=== PATIENT | female | born 1995 | race Caucasian/White ===

== ENCOUNTER 2016-05-03 18:30 | Emergency (ER) | payer SELFPAY ==
[2016-05-03 18:48] VITALS: BP 109/66; PULSE 62; RESP 16; TEMP 98.2; O2SAT 99
--- NOTE | 2016-05-03 19:25 | EDPHY ---
H & P Smoking Status: Current every day smoker Time Seen by Provider: 05/03/16 18:47 HPI/ROS: CHIEF COMPLAINT: Right hand injury HISTORY OF PRESENT ILLNESS: 20-year-old female presents to the emergency department with injury to the right hand. The patient was playing rugby and her hand was crushed on , 6 days ago. Patient continued to play with her hand taped up in splinted and is now concerned about the swelling and bruising that she has specially to the palmar right hand. She is right-hand dominant. She denies any other injury or trauma. ROS: Denies numbness or tingling in her fingers, pain in her right wrist or elbow. (Neda Powell) Past Medical/Surgical History: Negative (Neda Powell) Social History: [employer] student (Neda Powell) Physical Exam: On examination the right hand is swollen specially over the 2nd and 3rd metacarpals. She has ecchymosis noted diffusely to the palm of her right hand as well as to the base of the 2nd, 3rd, and 4th fingers. No rotational deformities noted. She has pain with range of motion. She has pain with palpation especially over the base of the 2nd metacarpal. Right wrist is nontender. Full range of motion of her right wrist and elbow. Normal sensation to light touch with normal 2 point discrimination. Strong radial pulse at the right wrist. (Neda Powell) Constitutional: Initial Vital Signs Temperature (C) 36.8 C 05/03/16 18:43 Heart Rate 62 05/03/16 18:43 Respiratory Rate 16 05/03/16 18:43 Blood Pressure 109/66 05/03/16 18:43 O2 Sat (%) 99 05/03/16 18:43 O2 Delivery Mode Room Air Allergies/Adverse Reactions: No Known Allergies Allergy (Unverified 05/03/16 18:49) Home Medications: Medication Instructions Recorded NK [No Known Home Meds] 05/03/16 MDM/Departure - MDM Diagnostics: X-rays of the right hand reveal no fractures. This is reviewed by myself the PAC system as well as by the radiologist. (Neda Powell) Procedures: Patient was placed in a volar Ortho Glass splint and examined post application in good placement with normal MANNEQUIN [employer]. (Neda Powell) ED Course/Re-evaluation: 20-year-old female presents with right hand injury. X-rays reveal no fractures. She was placed in volar splint and given orthopedic referral. (Neda Powell ) - Depart Disposition: Home, Routine, Self-Care Clinical Impression: Contusion of right hand Qualifiers: Encounter type: initial encounter Qualified Code(s): S60.221A - Contusion of right hand, initial encounter Condition: Good Instructions: Contusion in Adults (ED) Additional Instructions: Splint for comfort and support. Ibuprofen 600 mg every 8 hours as needed for pain. Follow up with orthopedic hand surgeon 1 week to recheck. Referrals: Miguel Fithc MD [Medical Doctor] - 5-7 days, call for appt. (Orthopedic surgeon on-call)
== END 2016-05-03 20:15 | disposition home or self-care (01) ==
DX: S60.221A Contusion of right hand, initial encounter (principal); F17.200 Nicotine dependence, unspecified, uncomplicated; W23.0XXA Caught, crushed, jammed, or pinched between moving objects, initial encounter; Y92.328 Other athletic field as the place of occurrence of the external cause; Y99.8 Other external cause status; Y93.63 Activity, rugby

== ENCOUNTER 2017-12-09 04:01 | Emergency (ER) | payer MEDICAID ==
[2017-12-09] MEDS ORDERED: diphenhydrAMINE 50 MG CAP PO ONE (04:10)
[2017-12-09] MEDS ORDERED: FAMOTIDINE 20 MG TAB ONE (04:10)
--- NOTE | 2017-12-09 04:11 | EDPHY ---
H & P Stated Complaint: WOKE WITH HIVES Time Seen by Provider: 12/09/17 04:11 HPI/ROS: HPI CHIEF COMPLAINT: Hives. HISTORY OF PRESENT ILLNESS: Otherwise healthy 22-year-old female, no significant medical history does not take any daily medications presents emergency room with hives. She denies any trouble breathing or trouble swallowing. States this woke from sleep she has been itching. She is unsure what caused this. She presents emergency room hemodynamically stable no acute distress. She has minimal hives on her arms bilaterally, and back. No trouble breathing no trouble swallowing. No vomiting. Past Medical History: Denies significant medical history Past Surgical History: Denies significant surgical history Social History: Had alcohol but no illicit drugs or tobacco. Family History: Noncontributory ROS REVIEW OF SYSTEMS: 10 Systems were reviewed and negative with the exception of the elements mentioned in the history of present illness. Exam Constitutional triage nursing summary reviewed, vital signs reviewed, awake/ alert. Eyes normal conjunctivae and sclera, EOMI, PERRLA. HENT normal inspection, atraumatic, moist mucus membranes, no epistaxis, neck supple/ no meningismus, no raccoon eyes. Respiratory no wheezing, no stridor. clear to auscultation bilaterally, normal breath sounds, no respiratory distress, no wheezing. Cardiovascular rate normal, regular rhythm, no murmur, no edema, distal pulses normal. Gastrointestinal soft, non-tender, no rebound, no guarding, normal bowel sounds, no distension, no pulsatile mass. Genitourinary no CVA tenderness. Musculoskeletal no midline vertebral tenderness, full range of motion, no calf swelling, no tenderness of extremities, no meningismus, good pulses, neurovascularly intact. Skin hives present. Minimal bilateral arms, back. Neurologic awake, alert and oriented x 3, AAOx3, moves all 4 extremities equally, motor intact, sensory intact, CN II-XII intact, normal cerebellar, normal vision, normal speech. Psychiatric normal mood/affect. Heme/Lymph/Immune no lymphadenopathy. Differential Diagnosis: Includes but is not limited to in a particular order allergic reaction, hives, anaphylaxis. Medical Decision Making: Plan for this patient she appears well nontoxic no acute distress. Oral meds prednisone, Benadryl, Pepcid. Watch closely further progression of allergic reaction. Re-evaluation: 055: Patient resting comfortably no acute distress. Patient is feeling much better. She would like to go home. Her urticaria resolved with oral meds. I have discussed return precautions with her. Return emergency room if worsening symptoms questions concerns, trouble breathing, trouble swelling, worsening rash. She understands. Prescription for prednisone, Pepcid, Benadryl for the next 3 days. Recommend following up with dandy tender. Source: Patient - Personal History LMP (Females 10-55): 22-28 Days Ago Current Tetanus/Diphtheria Vaccine: Yes Current Tetanus Diphtheria and Acellular Pertussis (TDAP): Yes - Medical/Surgical History Hx Asthma: No Hx Chronic Respiratory Disease: No Hx Diabetes: No Hx Cardiac Disease: No Hx Renal Disease: No Hx Cirrhosis: No Hx Alcoholism: No Hx HIV/AIDS: No Hx Splenectomy or Spleen Trauma: No Other PMH: MYOCARDITIS - Social History Smoking Status: Former smoker Constitutional: Initial Vital Signs Temperature (C) 36.6 C 12/09/17 04:04 Heart Rate 85 12/09/17 04:04 Respiratory Rate 18 12/09/17 04:04 Blood Pressure 124/74 H 12/09/17 04:04 O2 Sat (%) 98 12/09/17 04:04 O2 Delivery Mode Room Air Allergies/Adverse Reactions: No Known Allergies Allergy (Unverified 12/09/17 04:06) Home Medications: Medication Instructions Recorded Famotidine [Pepcid 20 MG (*)] 20 mg PO BID #6 tab 12/09/17 diphenhydrAMINE [Benadryl 25 MG 25 mg PO BID #6 tab 12/09/17 (*)] predniSONE 60 mg PO DAILY #9 tab 12/09/17 Medical Decision Making - Data Points Medications Given: Discontinued Medications Diphenhydramine HCl (Benadryl Injection) 50 mg IVP EDNOW ONE Stop: 12/09/17 04:12 Last Admin: 12/09/17 04:13 Dose: 50 mg Famotidine (Pepcid) 20 mg PO EDNOW ONE Stop: 12/09/17 04:13 Last Admin: 12/09/17 04:13 Dose: 20 mg Prednisone (Prednisone) 60 mg PO EDNOW ONE Stop: 12/09/17 04:14 Last Admin: 12/09/17 04:14 Dose: 60 mg Departure - Departure Disposition: Home, Routine, Self-Care Clinical Impression: Hives Condition: Good Instructions: Urticaria (ED) Additional Instructions: 1. Return to the emergency room if you have worsening symptoms 2. Return if develops shortness of breath, trouble breathing, vomiting trouble swallowing. 3. Prednisone for the next 3 days. Benadryl for the next 3 days Pepcid for the next 3 days return if worse. 4. I do recommend he see an dandy tender for formal allergy testing. Referrals: NONE *PRIMARY CARE P,. [Primary Care Provider] - As per Instructions Prescriptions: diphenhydrAMINE [Benadryl 25 MG (*)] 25 mg PO BID #6 tab Famotidine [Pepcid 20 MG (*)] 20 mg PO BID #6 tab predniSONE 60 mg PO DAILY #9 tab
[2017-12-09] MEDS ORDERED: FAMOTIDINE 20 MG TAB PO ONE (04:12)
[2017-12-09] MEDS ORDERED: predniSONE 20 MG TAB PO ONE (04:13)
[2017-12-09 06:07] VITALS: BP 119/62
== END 2017-12-09 06:07 | disposition home or self-care (01) ==
DX: L50.9 Urticaria, unspecified (principal)
CPT/HCPCS: 96374; J7512

== ENCOUNTER 2017-12-09 20:06 | Emergency (ER) | payer MEDICAID ==
[2017-12-09] MEDS ORDERED: diphenhydrAMINE 25 MG CAP PO ONE (20:39)
[2017-12-09] MEDS ORDERED: predniSONE 20 MG TAB PO ONE ×2 (20:39→20:45)
[2017-12-09] MEDS ORDERED: FAMOTIDINE 20 MG TAB PO ONE (20:39)
[2017-12-09] MEDS ORDERED: RANITIDINE 50 MG/2 ML VIAL IVP ONE (20:45)
--- NOTE | 2017-12-09 21:19 | EDPHY ---
H & P Stated Complaint: hives all over body Time Seen by Provider: 12/09/17 20:35 HPI/ROS: Chief complaint: Rash History of present illness: This is a 22-year-old female who presents to the emergency department for rash. She was seen last night, symptomatically treated with improvement in symptoms and discharged home to take prednisone, Benadryl and Pepcid. She states the rash is return today. It is very itchy. She denies swelling of the mouth, throat, wheezing or trouble breathing. She denies precipitating factors. She denies other associated signs or symptoms. No history of allergic reactions. Review of systems: A 10 point review of systems was obtained and other than described above was negative - Personal History LMP (Females 10-55): 15-21 Days Ago Current Tetanus/Diphtheria Vaccine: Yes Current Tetanus Diphtheria and Acellular Pertussis (TDAP): Yes - Medical/Surgical History Hx Asthma: No Hx Chronic Respiratory Disease: No Hx Diabetes: No Hx Cardiac Disease: No Hx Renal Disease: No Hx Cirrhosis: No Hx Alcoholism: No Hx HIV/AIDS: No Hx Splenectomy or Spleen Trauma: No Other PMH: MYOCARDITIS - Social History Smoking Status: Former smoker - Physical Exam Exam: General Appearance: Alert, no distress. Eyes: Pupils equal and round no pallor or injection. ENT, Mouth: Mucous membranes moist. No angioedema. Respiratory: There are no retractions, lungs are clear to auscultation. Cardiovascular: Regular rate and rhythm. Neurological: Alert and oriented x4. Strength and sensation intact and symmetrical. Skin: Diffuse urticarial rash to the body. Musculoskeletal: Neck is supple nontender. Extremities are symmetrical, full range of motion. Psychiatric: Patient is oriented X 3, there is no agitation. Constitutional: Initial Vital Signs Temperature (C) 37.0 C 12/09/17 20:07 Heart Rate 71 12/09/17 20:07 Respiratory Rate 16 12/09/17 20:07 Blood Pressure 124/68 H 12/09/17 20:07 O2 Sat (%) 99 12/09/17 20:07 O2 Delivery Mode Room Air Allergies/Adverse Reactions: No Known Allergies Allergy (Verified 12/09/17 20:10) Home Medications: Medication Instructions Recorded Famotidine [Pepcid 20 MG (*)] 20 mg PO BID #6 tab 10/14/18 Nexplanon 12/09/17 diphenhydrAMINE [Benadryl 25 MG 25 mg PO BID #6 tab 12/09/17 (*)] predniSONE 60 mg PO DAILY #9 tab 12/09/17 Medical Decision Making ED Course/Re-evaluation: Patient seen under the supervision of my secondary supervising physician Dr. Jose Centeno. Patient presents with an urticarial rash. She is afebrile and vital signs are stable. No evidence of severe allergic reaction. She is given her 2nd dose of prednisone as she has not had it today. She is IV hydrated given IV Benadryl and Zantac. She has improvement in symptoms. She will be discharged home. She is asked to continue prednisone, increased Benadryl to the 4 times a day and continue Pepcid. She is to follow up with the primary care doctor for recheck. I have also encouraged her to launder all her clothes and linens and try to identify any precipitating factors. Strict return precautions are given. The patient voiced understanding and agreement with plan. Differential Diagnosis: Included but not limited to allergic reaction, contact dermatitis, no evidence of anaphylaxis - Data Points Medications Given: Discontinued Medications Diphenhydramine HCl (Benadryl Injection) 50 mg IVP EDNOW ONE Stop: 12/09/17 20:46 Last Admin: 12/09/17 20:50 Dose: 50 mg Prednisone (Prednisone) 60 mg PO EDNOW ONE Stop: 12/09/17 20:46 Last Admin: 12/09/17 20:47 Dose: 60 mg Ranitidine HCl (Zantac) 50 mg IVP EDNOW ONE Stop: 12/09/17 20:46 Last Admin: 12/09/17 20:50 Dose: 50 mg Departure - Departure Disposition: Home, Routine, Self-Care Clinical Impression: Allergic reaction Qualifiers: Encounter type: initial encounter Qualified Code(s): T78.40XA - Allergy, unspecified, initial encounter Condition: Good Instructions: Urticaria (ED) Additional Instructions: Please follow-up with a primary care doctor for continued evaluation and care. Continue prednisone as prescribed until finished. I recommend Benadryl 25 mg every 6 hours. If symptoms worsen or new symptoms develop return to the emergency department for recheck. Referrals: NONE *PRIMARY CARE P,. [Primary Care Provider] - As per Instructions Elly Hansen MD [Medical Doctor] - As per Instructions
[2017-12-09 21:36] VITALS: BP 122/78
== END 2017-12-09 21:35 | disposition home or self-care (01) ==
DX: T78.40XA Allergy, unspecified, initial encounter (principal); R21 Rash and other nonspecific skin eruption; J45.909 Unspecified asthma, uncomplicated
CPT/HCPCS: 96374; J1200; J2780; J7512